=== PATIENT | female | born 1960 | race African-American/Black ===

== ENCOUNTER 2018-07-31 14:49 | Emergency (ER) | payer OTHER ==
[~2018-07-31] VITALS: Ht 165.1 cm; Wt 72.0 kg
[~2018-07-31 14:49] MED LIST: AMLO5TAB4; HYDRALAZINE; LITHIUM; ZIPR80CA2
[2018-07-31 14:56] VITALS: BP 201/100
== END 2018-07-31 22:22 | disposition left against medical advice (07) ==
LOC: ER 14:49
DX: Z53.21 Procedure and treatment not carried out due to patient leaving prior to being seen by health care provider (principal)

== ENCOUNTER 2022-02-27 22:20 | Emergency (ER) | payer OTHER ==
[~2022-02-27] VITALS: Ht 165.1 cm; Wt 57.0 kg
[2022-02-27 22:30] VITALS: BP 130/73
[2022-02-28 00:33] LABS: BASOPHILS % 0.7 % (0.0-2.0); HEMATOCRIT. 35.4 % (36.0-48.0); HEMOGLOBIN. 11.3 g/dL (12.0-16.0); LYMPHOCYTES % 16.7 % (20.0-50.0); MEAN CORPUSCULAR HEMOGLOBIN 26.5 pg (28.0-32.0); MEAN PLATELET VOLUME 9.2 fl (7.4-10.4); MONOCYTES % 8.2 % (2.0-8.0); NEUTROPHILS % 73.4 % (40.0-76.0); PLATELET 126 x1000/uL (130-400); RED BLOOD CELL COUNT 4.26 mill/uL (4.2-5.4); RED CELL DISTRIBUTION WIDTH 15.7 % (11.6-14.6)
[2022-02-28 00:41] LABS: CHLORIDE 110 mEq/L (98-107)
[2022-02-28 00:49] LABS: ETHANOL BLOOD < 10 mg/dL
== END 2022-02-28 04:02 | disposition home or self-care (01) ==
LOC: ER 22:20
DX: F15.188 Other stimulant abuse with other stimulant-induced disorder (principal); I10 Essential (primary) hypertension
CPT/HCPCS: 36415; 71045; 80053; 80320; 85025; 99285; G0480

== ENCOUNTER 2024-12-12 10:09 | Emergency (ER) | payer OTHER ==
[~2024-12-12] VITALS: Ht 165.1 cm; Wt 77.0 kg
[~2024-12-12 10:09] MED LIST changes: -AMLO5TAB4; +AMLO5TAB5
[2024-12-12 10:14] VITALS: O2SAT 96
[2024-12-12 11:00] LABS: BASOPHILS % 1.3 % (0.0-2.0); DIFFERENTIAL COMMENT 0; EOSINOPHILS % 2.9 % (0.0-5.0); HEMATOCRIT. 39.6 % (36.0-48.0); HEMOGLOBIN. 12.5 g/dL (12.0-16.0); LYMPHOCYTES % 19.4 % (20.0-50.0); MEAN CORPUSCULAR HEMOGLOBIN 26.8 pg (28.0-32.0); MEAN CORPUSCULAR HGB CONC 31.5 g/dL (31.0-37.0); MEAN PLATELET VOLUME 9.8 fl (7.4-10.4); NEUTROPHILS % 68.4 % (40.0-76.0); PLATELET 131 x1000/uL (130-400); RED BLOOD CELL COUNT 4.65 mill/uL (4.2-5.4); WHITE BLOOD COUNT 7.7 x1000/uL (4.5-11.0)
[2024-12-12 11:07] LABS: CHLORIDE 113 mEq/L (98-107); POTASSIUM 3.8 mEq/L (3.5-5.1); SODIUM 145 mEq/L (136-145)
[2024-12-12 11:08] LABS: CALCIUM 9.4 mg/dL (8.7-10.4); CARBON DIOXIDE 25 mEq/L (21-32)
[2024-12-12 11:13] LABS: CREATININE 2.5 mg/dL (0.6-1.0); GLUCOSE 88 mg/dL (70-105); UREA NITROGEN BLOOD 30 mg/dL (9-23)
[2024-12-12 11:14] LABS: ETHANOL BLOOD < 10 mg/dL (<10)
[2024-12-12 11:27] LABS: TROPONIN I HIGH SENSITIVITY 66 ng/L (3.0-34)
[2024-12-12] MEDS: ASPIRIN 81MG EC TABLET PO SCH (11:57)
[2024-12-12] MEDS ORDERED: AMLODIPINE 10MG TABLET PO ONE (12:30)
[2024-12-12] MEDS ORDERED: LOSARTAN 100 MG TABLET PO ONE (12:30)
[2024-12-12] MEDS ORDERED: ENOXAPARIN 80MG/0.8ML SYR SUBCUT ONE (13:30)
[2024-12-12] MEDS ORDERED: AMLODIPINE 10MG TABLET PO SCH (14:15)
[2024-12-12] MEDS: LOSARTAN 50 MG TABLET PO SCH (14:23)
[2024-12-12 15:49] VITALS: BP 217/81; PULSE 65; RESP 17; TEMP 36.5; O2SAT 96
== END 2024-12-12 16:57 | disposition left against medical advice (07) ==
LOC: ER 10:09 → EDBEDREQ 13:29 → EDBEDREQTM 13:29 → ER 16:57 → ENRESERV 12-13 09:35 → CANRESERV 12-13 09:35
DX: I21.4 Non-ST elevation (NSTEMI) myocardial infarction (principal); I63.9 Cerebral infarction, unspecified; I10 Essential (primary) hypertension; F15.90 Other stimulant use, unspecified, uncomplicated; Z79.899 Other long term (current) drug therapy; Z98.51 Tubal ligation status; Z88.2 Allergy status to sulfonamides; Z88.1 Allergy status to other antibiotic agents; Z20.822 Contact with and (suspected) exposure to COVID-19
CPT/HCPCS: 80048; 80320; 85025; 84484; 36415; 70450; 70551; 99291; J1650; Z7610; A4606; G0480